=== PATIENT | male | born 1980 | race Hispanic/Latino ===

== ENCOUNTER 2024-04-24 15:15 | Emergency (ER) | payer SELFPAY ==
[~2024-04-24] VITALS: Ht 175.3 cm; Wt 81.6 kg
[2024-04-24] MEDS: ONDANSETRON HCL INJ 2MG/ML 2ML 2 MG/ML VIAL IM STA (17:28)
[2024-04-24] MEDS: Morphine 4mg INJECTION 4 MG/ML INJ IM ONE (17:29)
[2024-04-24 18:06] VITALS: PULSE 88; RESP 18; TEMP 98.1
[2024-04-24] MEDS ORDERED: CEPHALEXIN500 MG PO (18:14)
[2024-04-24] MEDS ORDERED: HYDROCODON-ACE1 EA11 PO (18:14)
[2024-04-24 18:34] VITALS: BP 132/89; PULSE 78; RESP 18; TEMP 98.1; O2SAT 99
== END 2024-04-24 18:35 | disposition home or self-care (01) ==
LOC: ER 15:48
DX: S62.615A Displaced fracture of proximal phalanx of left ring finger, initial encounter for closed fracture (principal); W20.8XXA Other cause of strike by thrown, projected or falling object, initial encounter; Y92.89 Other specified places as the place of occurrence of the external cause
CPT/HCPCS: 26725; 73140; 99284; J2270; J2405